=== PATIENT | male | born 1940 | race Caucasian/White ===

== ENCOUNTER 2017-06-17 22:29 | Inpatient (IN) | payer OTHER ==
[~2017-06-17] VITALS: Ht 180.3 cm; Wt 104.6 kg
--- NOTE | 2017-06-17 22:45 | ED GENERAL ADULT ---
See Addendum History of Present Illness General Chief Complaint: Neuro Symptoms/ Deficit Stated Complaint: DISORIENTED,DIFF WALKING,LOSS OF BALANCE Source: patient, family Exam Limitations: no limitations Vital Signs & Intake/Output Vital Signs & Intake/Output Vital Signs Date Time Temp Pulse Resp B/P B/P Pulse O2 O2 Flow FiO2 Mean Ox Delivery Rate 06/17 2336 54 16 114/60 97 Room Air 06/17 2239 98.6 55 18 168/69 96 ED Intake and Output 06/18 0000 06/17 1200 Intake Total Output Total Balance Patient 220 lb Weight Weight Estimated Measurement Method Allergies Coded Allergies: Penicillins (Mild, UNKNOWN 06/17/17) Triage Note: RECEIVED 76 YO MALE C/O MILDLY SLURRED SPEECH, STARTED ABOUT 5 TO 6 PM TODAY WITH DIFFICULTY WALKING, OFF BALANCE, UNSTEADY ON FEET. PARTNER REPORTS SOME DISORINTATION. PT A+O X 4. PT REPORTS SOME L LEG WEAKNESS Triage Nurses Notes Reviewed? yes Onset: Abrupt Duration: hour(s): Timing: recent history HPI: 06/17/17 10:50 PM 76-year-old man presents to the emergency department for a sudden onset of weakness and dragging his left foot. The patient [place] 5 [place] and developed the above symptoms. He denies chest pain or shortness of breath. On physical exam he does have a slight left- sided facial droop and weakness to left hip flexion. He was immediately transported to CT scan for imaging. (Adrian Montero DO) Past History Travel History Traveled to [place] past 21 day No Medical History Any Pertinent Medical History? see below for history Neurological: NONE EENT: NONE Cardiovascular: hypertension, hyperlipidemia Respiratory: NONE Gastrointestinal: NONE Hepatic: NONE Renal: NONE Musculoskeletal: NONE Psychiatric: NONE Endocrine: NONE Blood Disorders: NONE Cancer(s): NONE Surgical History Surgical History: non-contributory Psychosocial History What is your primary language Frisian Tobacco Use: Quit >30 days ago Family History Hx Contributory? No (Adrian Montero DO) Review of Systems Review of Systems Constitutional: Denies: fever. EENTM: Denies: visual changes. Respiratory: Denies: short of breath. Cardiovascular: Denies: chest pain. GI: Denies: abdominal pain. Genitourinary: Reports: no symptoms. Musculoskeletal: Reports: no symptoms. Skin: Reports: no symptoms. Neurological/Psychological: Reports: weakness. Hematologic/Endocrine: Denies: bruising, bleeding. Immunologic/Allergic: Reports: no symptoms. (Adrian Montero DO) Physical Exam Physical Exam General Appearance: well developed/nourished, alert, awake, anxious, moderate distress Head: atraumatic, normal appearance Eyes: Bilateral: normal appearance, PERRL, EOMI. Ears, Nose, Throat: normal pharynx, normal ENT inspection Neck: normal inspection, supple Respiratory: normal breath sounds, chest non-tender, no respiratory distress Cardiovascular: regular rate/rhythm Peripheral Pulses: 4+ radial (R), 4+ radial (L) Gastrointestinal: soft, non-tender Back: normal range of motion Extremities: no edema Neurologic/Psych: awake, alert, oriented x 3 Skin: intact, normal color, warm/dry Core Measures ACS in differential dx? No No ASA d/t GIVEN CVA/TIA Diagnosis: Yes NIH Stroke Scale (24 Hours) NIH Stroke Scale (24 Hours) Response Value Level of Consciousness alert 0 LOC Questions answers both correctly 0 LOC Commands obeys both correctly 0 Best Gaze normal 0 Visual Dawn no visual loss 0 Facial Paresis normal 0 Motor Arm - Left drift 1 Motor Arm - Right no drift 0 Motor Leg - Left drift 1 Motor Leg - Right no drift 0 Limb Ataxia no ataxia 0 Sensory normal 0 Best Language no aphasia 0 Dysarthria normal articulation 0 Extinction and Inattention no neglect 0 Total 2 Date Last Known Well: 06/17/17 Time Last Known Well: 1700 Symptom start date: 06/17/17 Symptom start time: 1700 Reason tPA not ordered Medical Contraindication Sepsis Present: No Sepsis Focused Exam Completed? No (Adrian Montero DO) Core Measures Swallow Evaluation Pass Swallow eval date 06/18/17 Swallow eval time 0126 (Adwoa TRAN,Thai Gallegos) Progress Differential Diagnoses I considered the following diagnoses in my evaluation of the patient: [CVA, TIA, subarachnoid hemorrhage, intracranial bleed, acute coronary syndrome] Plan of Care: Orders Procedure Date/time Status EKG 06/17 2312 Active Saline Lock 06/17 2250 Active TROPONIN LEVEL 06/17 2250 Complete PROTHROMBIN TIME 06/17 2250 Complete COMPREHENSIVE METABOLIC PANEL 06/17 2250 Complete CBC WITHOUT DIFFERENTIAL 06/17 2250 Complete Laboratory Tests 06/17/17 2305: Anion Gap 10, Estimated GFR > 60, BUN/Creatinine Ratio 16.4, Glucose 103 H, Calcium 9.0, Total Bilirubin 1.3, AST 21, ALT 33, Alkaline Phosphatase 64, Troponin I 0.02, Total Protein 6.4, Albumin 3.8, Globulin 2.6, Albumin/Globulin Ratio 1.5, PT 13.4 H, INR 1.23 H, CBC w Diff NO MAN DIFF REQ, RBC 5.01, MCV 88.5, MCH 30.4, MCHC 34.4, RDW 13.2, MPV 7.5, Gran % 62.5, Lymphocytes % 25.9, Monocytes % 7.0, Eosinophils % 4.2, Basophils % 0.4, Absolute Granulocytes 5.0, Absolute Lymphocytes 2.1, Absolute Monocytes 0.6, Absolute Eosinophils 0.3, Absolute Basophils 0 Initial ED EKG: SINUS BRADYCARDIA, JUMBO LATERAL T-WAVE INVERSIONS (Adrian Montero DO) Diagnostic Imaging: Viewed by Me: CT Scan. Discussed w/RAD: CT Scan. Radiology Impression: PATIENT: NATHAN NORTH PRESENT AGE: 76 PATIENT ACCOUNT NO: [id number] : 42 LOCATION: [facility] ORDERING PHYSICIAN: Adrian Montero DO SERVICE DATE: 06/17/17 EXAM TYPE: CAT - CT HEAD ANGIOGRAM EXAMINATION: CT ANGIOGRAM HEAD CLINICAL INFORMATION: Left leg weakness. Facial droop. COMPARISON: Head CT 06/17/2017. TECHNIQUE: Test bolus sequences followed by intravenous administration 95 mL of Optiray 320 intravenous contrast. Helical imaging was performed in the axial plane of the head. Delayed postcontrast imaging of the head was also performed. The data was processed at the rad technologist's workstation for generation of MIP sequences. Three-dimensional volume rendered reformatted images were also generated at an offline 3-D workstation. DLP: 1476 mGy-cm FINDINGS: HEAD: No intracranial mass, intercerebral edema, hemorrhage, or midline shift is evident. No abnormal parenchymal or leptomeningeal enhancement. The ventricles and sulci are stable in size and configuration. No extra-axial collections are appreciated. The paranasal sinuses are well aerated and clear. CRANIAL CTA: There is normal opacification of the major intracranial vessels. No acute proximal large vessel occlusion, focal flow-limiting stenosis, or saccular intracranial aneurysm is identified. No abnormal parenchymal enhancement or regional oligemia is visualized. Dominant left vertebral artery noted. IMPRESSION: No large vessel vascular occlusion. No abnormal parenchymal enhancement. DICTATED BY: Jeronimo Deras MD DATE/TIME DICTATED:06/18/17103 TABLET MAKING MACHINE OPERATOR HELPER: CARY DATE/TIME TRANSCRIBED:06/18/17103 CONFIDENTIAL, DO NOT COPY WITHOUT APPROPRIATE AUTHORIZATION. <Electronically signed in Other Vendor System> SIGNED BY: Jeronimo Deras MD 06/18/17 0112 (Adwoa TRAN,Thai Gallegos) Departure Departure Disposition: STILL A PATIENT Condition: Stable Clinical Impression Primary Impression: CVA (cerebral vascular accident) Departure Forms: Customer Survey General Discharge Information Comments 06/17/17 11:50 PM The patient remains hemodynamically stable,head CT is negative. I spoke to the [place] neurologist Dr. Castillo. I also spoke with Dr. Montalvo. The patient is not a TPA candidate as the onset of the symptoms occurred 5-6 hours prior to arrival. CTA is being done to rule out large vessel occlusion. Dr. Orona will follow the results. PATIENT: NATHAN NORTH PRESENT AGE: 76 PATIENT ACCOUNT NO: [id number] : 42 LOCATION: [facility] ORDERING PHYSICIAN: Adrian Montero DO SERVICE DATE: 06/17/17 EXAM TYPE: CAT - CT HEAD WO IV CONTRAST EXAMINATION: CT HEAD WITHOUT CONTRAST CLINICAL INFORMATION: Altered mental status. COMPARISON: None TECHNIQUE: Contiguous axial imaging was performed from the skull base to vertex without intravenous administration of contrast. DLP: 627.9 mGy-cm FINDINGS: There is no evidence of acute intracranial hemorrhage or territorial infarction. No abnormal mass effect or midline shift is seen. Fair to white matter differentiation is well preserved. No extra-axial fluid collections are identified. There is atrophy with prominence of the ventricles and the sulci and hypodensity of the periventricular white matter due to chronic small vessel ischemic disease. There is vascular calcifications of the internal carotid arteries bilaterally. The osseous structures and soft tissues are normal. The mastoid air cells and visualized portions of the paranasal sinuses are well aerated. IMPRESSION: No acute intracranial pathology. DICTATED BY: Mario Mcknight MD DATE/TIME DICTATED:06/17/172304 TABLET MAKING MACHINE OPERATOR HELPER:CARY DATE/TIME TRANSCRIBED:06/17/172304 CONFIDENTIAL, DO NOT COPY WITHOUT APPROPRIATE AUTHORIZATION. <Electronically signed in Other Vendor System> SIGNED BY: Mraio Mcknight MD 06/17/172308 (Adrian Montero DO) Admission Note Spoke With: Mehnaz Mcknight MD Documentation of Exam: Documentation of any treatments & extenuating circumstances including Concerns Regarding Discharge (functional status, medication knowledge or non-compliance, living conditions, etc.) that warrant an admission rather than observation: [ ADMIT TO TELE,NEUROLOGY CONSULT, ASA, PT/OT] (Adwoa TRAN,Thai Gallegos) Critical Care Note Critical Care Note Critical Care Time: 30-74 min (Adrian Montero DO)
--- NOTE | 2017-06-17 23:09 | CT SCAN REPORT ---
EXAMINATION: CT HEAD WITHOUT CONTRAST CLINICAL INFORMATION: Altered mental status. COMPARISON: None TECHNIQUE: Contiguous axial imaging was performed from the skull base to vertex without intravenous administration of contrast. DLP: 627.9 mGy-cm FINDINGS: There is no evidence of acute intracranial hemorrhage or territorial infarction. No abnormal mass effect or midline shift is seen. Fair to white matter differentiation is well preserved. No extra-axial fluid collections are identified. There is atrophy with prominence of the ventricles and the sulci and hypodensity of the periventricular white matter due to chronic small vessel ischemic disease. There is vascular calcifications of the internal carotid arteries bilaterally. The osseous structures and soft tissues are normal. The mastoid air cells and visualized portions of the paranasal sinuses are well aerated. IMPRESSION: No acute intracranial pathology.
[2017-06-17 23:27] LABS: ABSOLUTE BASOPHIL COUNT 0 /CUMM (0.0-0.2); ABSOLUTE EOSINOPHIL COUNT 0.3 /CUMM (0.0-0.7); ABSOLUTE LYMPH COUNT 2.1 /CUMM (1.2-3.4); ABSOLUTE MONOCYTE COUNT 0.6 /CUMM (0.10-0.60); BASOPHIL % 0.4 % (0.0-2.0); EOSINOPHIL % 4.2 % (0-5); GRANULOCYTE % 62.5 % (42.2-75.2); HEMATOCRIT 44.4 % (42-52); MEAN CORPUSCULAR HGB 30.4 PG (27.0-31.0); MEAN CORPUSCULAR HGB CONC 34.4 G/DL (33.0-37.0); MEAN CORPUSCULAR VOLUME 88.5 FL (80.0-94.0); MEAN PLATELET VOLUME 7.5 FL (7.4-10.4); PLATELET COUNT 254 /CUMM (130-400); RBC DISTRIBUTION WIDTH 13.2 % (11.5-14.5); RED BLOOD CELL CT 5.01 /CUMM (4.70-6.10); WHITE BLOOD CELL COUNT 8.1 /CUMM (4.8-10.8)
[2017-06-17 23:34] LABS: PT 13.4 SEC (9.4-12.5)
--- NOTE | 2017-06-17 23:54 | RADIOLOGY REPORT ---
EXAMINATION: XR PORTABLE CHEST CLINICAL INFORMATION: Altered mental status COMPARISON: None TECHNIQUE: Portable frontal view of the chest was obtained. FINDINGS: Cardiac leads overlie the chest. The lungs are well expanded. There is no focal consolidation, edema, or effusion. No pneumothorax. The cardiomediastinal silhouette is within normal limits. No acute osseous abnormality. IMPRESSION: No acute pulmonary findings.
--- NOTE | 2017-06-18 01:12 | CT SCAN REPORT ---
EXAMINATION: CT ANGIOGRAM HEAD CLINICAL INFORMATION: Left leg weakness. Facial droop. COMPARISON: Head CT 06/17/2017. TECHNIQUE: Test bolus sequences followed by intravenous administration 95 mL of Optiray 320 intravenous contrast. Helical imaging was performed in the axial plane of the head. Delayed postcontrast imaging of the head was also performed. The data was processed at the certified nuclear medicine technologist's workstation for generation of MIP sequences. Three-dimensional volume rendered reformatted images were also generated at an offline 3-D workstation. DLP: 1476 mGy-cm FINDINGS: HEAD: No intracranial mass, intercerebral edema, hemorrhage, or midline shift is evident. No abnormal parenchymal or leptomeningeal enhancement. The ventricles and sulci are stable in size and configuration. No extra-axial collections are appreciated. The paranasal sinuses are well aerated and clear. CRANIAL CTA: There is normal opacification of the major intracranial vessels. No acute proximal large vessel occlusion, focal flow-limiting stenosis, or saccular intracranial aneurysm is identified. No abnormal parenchymal enhancement or regional oligemia is visualized. Dominant left vertebral artery noted. IMPRESSION: No large vessel vascular occlusion. No abnormal parenchymal enhancement.
--- NOTE | 2017-06-18 02:48 | History & Physical ---
Peter Lai MD 06/18/17 0247: General Information and HPI MD Statement: I have seen and personally examined NATHAN NORTH and documented this H&P. The patient is a 76 year old M who presented with a patient stated chief complaint of left sided weakness and facial droop. Source of Information: patient Exam Limitations: no limitations History of Present Illness: 76 year old right handed male former smoker with past medical history significant for hypertension and hyperlipidema presented to the emergency department with acute onset left hemiplegia and dysarthria. The patient was in his usual state of health, playing golf around 5PM, when he noticed he felt off balance, weak, wasn't hitting the ball well. He thought he was dehydrated because he sometimes has orthostatic symptoms and feels lightheaded from his diuretics and blood pressure medications. He was driven back to [employer] and tried to drink some water. He realized then that his symptoms weren't improving , had significant left sided weakness, and developed dysarthria over the next couple hours. He was picked up and taken home by his significant other. After no improvement in his symptoms over the course of five hours he came to the emergency department. Review of systems is negative for any chest pain, palpitations, fevers, chills, confusion, seizure activity, cough, or dysuria. He reportedly has seen a sales representative publications in [place] in the past and had a negative stress test about 7 years ago. He does report having a cardiac catheterization about 50 years ago for an uncertain procedure but no other cardiac history. He takes medications for high blood pressure and cholesterol ( norvasc, chlorthalidone, and crestor. cant recall the other two medications). He quit smoker 20 years ago but has the occasional cigar and drinks approximately 10 alcoholic drinks per week. In the emergency department, he was outside the TPA window and underwent NCHCT and CTA of the head. He was given aspirin 325mg and admitted to telemetry for further management. Allergies/Medications Allergies: Coded Allergies: Penicillins (Mild, UNKNOWN 06/17/17) Compliance With Home Meds: GOOD Past History Travel History Traveled to [place] past 21 day No Medical History Neurological: NONE EENT: NONE Cardiovascular: hypertension, hyperlipidemia Respiratory: NONE Gastrointestinal: NONE Hepatic: NONE Renal: NONE Musculoskeletal: NONE Psychiatric: NONE Endocrine: NONE Blood Disorders: NONE Cancer(s): NONE Surgical History Surgical History: non-contributory Past Family/Social History Family History Relations & Conditions if any MOTHER Chronic kidney disease FATHER FH: diabetes mellitus FH: pancreatic cancer Psychosocial History Smoking Status: Former Smoker ETOH Use: occasional use Illicit Drug Use: denies illicit drug use Functional Ability ADLs Independent: dressing, eating, toileting, bathing. Ambulation: independent IADLs Independent: shopping, housework, finances, food prep, telephone, transportation , medication admin. Review of Systems Review of Systems Constitutional: Reports: malaise. Denies: chills, diaphoresis, fever. EENTM: Reports: no symptoms. Cardiovascular: Denies: chest pain, palpitations, syncope. Respiratory: Denies: orthopnea, short of breath. GI: Reports: no symptoms. Genitourinary: Reports: no symptoms. Musculoskeletal: Reports: no symptoms. Skin: Reports: no symptoms. Neurological/Psychological: Reports: ataxia, weakness. Hematologic/Endocrine: Reports: no symptoms. Immunologic/Allergic: Reports: no symptoms. All Other Systems: Reviewed and Negative Exam & Diagnostic Data Last 24 Hrs of Vital Signs/I&O Vital Signs Date Time Temp Pulse Resp B/P B/P Pulse O2 O2 Flow FiO2 Mean Ox Delivery Rate 06/18 0410 98.4 55 16 147/74 94 Room Air 06/17 2336 54 16 114/60 97 Room Air 06/17 2332 96 Room Air 06/17 2239 98.6 55 18 168/69 96 Intake & Output 06/18 0800 06/18 0000 06/17 1600 Intake Total Output Total Balance Patient 99.79 kg Weight Weight Estimated Measurement Method Physical Exam General Appearance Alert, Oriented X3, Cooperative, No Acute Distress, dysarthric HEENT Atraumatic, PERRLA, EOMI, Mucous Membr. moist/pink Neck Supple, No JVD Cardiovascular Regular Rate, Normal S1, Normal S2, No Murmurs Lungs Clear to Auscultation, Normal Air Movement Abdomen Normal Bowel Sounds, Soft, No Tenderness, No Masses Neurological Normal Tone, Sensation Intact, Reflexes 2+, left facial droop and LUE/LLE 4/5 strength, ataxic narrow based gait, negative romberg, mild dysarthria and facial assymetry Extremities No Clubbing, No Cyanosis, Normal Pulses, minimal bilateral LE edema Last 24 Hrs of Labs/Ignacio: Laboratory Tests 06/18/17 0550: Sodium Pending, Potassium Pending, Chloride Pending, Carbon Dioxide Pending, Anion Gap Pending, BUN Pending, Creatinine Pending, BUN/Creatinine Ratio Pending , Triglycerides Pending, Cholesterol Pending, LDL Cholesterol, Calc Pending, HDL Cholesterol Pending, Cholesterol/HDL Ratio Pending, TSH Pending, Free T4 Pending , CBC w Diff Pending, WBC Pending, RBC Pending, Hgb Pending, Hct Pending, MCV Pending, MCH Pending, MCHC Pending, RDW Pending, Plt Count Pending, MPV Pending 06/17/17 2305: Anion Gap 10, Estimated GFR > 60, BUN/Creatinine Ratio 16.4, Glucose 103 H, Calcium 9.0, Total Bilirubin 1.3, AST 21, ALT 33, Alkaline Phosphatase 64, Troponin I 0.02, Total Protein 6.4, Albumin 3.8, Globulin 2.6, Albumin/Globulin Ratio 1.5, PT 13.4 H, INR 1.23 H, CBC w Diff NO MAN DIFF REQ, RBC 5.01, MCV 88.5, MCH 30.4, MCHC 34.4, RDW 13.2, MPV 7.5, Gran % 62.5, Lymphocytes % 25.9, Monocytes % 7.0, Eosinophils % 4.2, Basophils % 0.4, Absolute Granulocytes 5.0, Absolute Lymphocytes 2.1, Absolute Monocytes 0.6, Absolute Eosinophils 0.3, Absolute Basophils 0 Diagnostic Data EKG Results diffuse T wave inversions Assessment/Plan Assessment: 76 year old right handed male former smoker with past medical history significant for hypertension and hyperlipidema presented to the emergency department with acute onset left hemiplegia and dysarthria. CVA: NIH stroke scale of 4, outside TPA window on presentation NCHCT negative for intracranial hemorrhage or territorial infarction Negative CTA of the head Given 325mg of aspirin in the emergency department Monitor for arrhythmia on telemetry for possible embolic CVA Neurology consultation Continue aspirin and high intensity statin-on crestor at home Check lipid panel Will need carotid doppler, transthoracic echocardiogram and MRI Brain to complete workup PT/OT consultations and formal swallow evaluation ordered HTN: Hold antihypertensives for permissive hypertension first 48 hours Medications need to be confirmed in the morning, patient couldn't recall all his meds/doses and no pharmacy claim history available Heart healthy diet DVT ppx-lovenox 40mg subcutaneous daily Full code As Ranked By This Provider Problem List: 1. CVA (cerebral vascular accident) Core Measures/Misc (11/21) Acute Coronary Syndrome ACS Diagnosis: No Congestive Heart Failure Congestive Heart Failure Diagnosis No Cerebrovascular Accident CVA/TIA Diagnosis: Yes NIH Stroke Scale: Total 4 Date Last Known Well: 06/17/17 Time Last Known Well: 1700 Symptom Start Date: 06/17/17 Symptom Start Time: 1700 Reason tPA not ordered Medical Contraindication Swallow Evaluation Pass Current/Past Hx AFib/AFlutter No VTE (View Protocol) VTE Risk Factors Age>40 No Mechanical VTE Prophylaxis d/t N/A MechProphylax Ordered No VTE Pharm Prophylaxis d/t NA PharmProphylax ordered Sepsis (View protocol) Sepsis Present: No MaurilioJason crews 06/18/17 0523: General Information and HPI Allergies/Medications Home Med list Amlodipine Besylate 5 MG TABLET 5 MG PO DAILY HEART (Reported) Atorvastatin Calcium 10 MG TABLET 10 MG PO DAILY HEART (Reported) Benazepril HCl 40 MG TABLET 40 MG PO BID HEART (Reported) Carvedilol 25 MG TABLET 25 MG PO BID HEART (Reported) Chlorthalidone 25 MG TABLET 25 MG PO DAILY HEART (Reported) Resident Review Statement Resident Statement: examined this patient, discussed with international coordinator, agreed with international coordinator, reviewed images Other Findings: 76-year-old gentleman past medical history significant for hypertension, hyperlipidemia, status post cardiac cath about 50 years ago, presenting with left upper and lower extremity weakness. Apparently he was golfing during the day yesterday when he started to experience all limbs with his gait and states this was around 5 PM. The weakness was later associated with some mild difficulty speaking. He asked his significant other to come pick me him up and bring him to the hospital. Time on arrival to the ED was around 10 PM. On interview states that he is continuing to have left upper and lower extremity weakness, however his speech has improved a little. Denies chest pain, palpitations, fever, tingling, numbness, syncope. Vitals temperature 98.6, respiratory rate 16, heart rate 55, blood pressure 168/ 69> 114/60, saturating 97% on room air. On examination patient is alert and oriented, some mild slurring of speech noted. Pupils equal round and reactive, no nystagmus noted, visual evans intact. Mild left facial droop noted. Left upper and lower extremity weakness 3/5. Reflexes +2, no Babinski noted. Passed bedside swallow eval Labs CBC/bep unremarkable, glucose 103, INR 1.23, troponin 0.02 EKG normal sinus rhythm with diffuse T-wave inversions seen in all leads Imaging: CT head :No acute intracranial pathology. Chest x-ray: No acute pulmonary findings. CTA:No large vessel vascular occlusion. No abnormal parenchymal enhancement. Problem list: Ischemic CVA Hypertension hyperlipidemia Plan: Admit to telemetry floor, continue his cardiac monitoring every 2 neurochecks, vitals per protocol Follow-up echocardiogram, lipid panel, TSH Hold antihypertensives for now to allow for permissive hypertension Please confirm his medication list in the morning Continue aspirin and increase his Crestor to 40 mg PT /OT to evaluate and treat Formal swallow eval heart healthy diet Patient would like to hold off on further imaging such as MRI and carotid ultrasound pending records from his PCP to see what he has already had done. DVT prophylaxis with subcutaneous Lovenox Full code Mehnaz Mcknight 06/18/17 0536: Attending MD Review Statement Attending Statement Attending MD Statement: examined this patient, discuss w/resident/PA/VEHICLE UPHOLSTERER, agreed w/resident/PA/VEHICLE UPHOLSTERER, reviewed EMR data (avail), reviewed images, amended to note Attending Assessment/Plan: CC: Left sided weakness PMH: HTN Patient was playing golf today at 5 PM when he noticed that his gait was unsteady. He could not keep playing golf anymore, he thought he must be dehydrated so he called his friend to drive him to her home. He stayed there for some time, tried to hydrate himself but gait instability persisted and he started to notice left-sided weakness with slurred speech. He realized the symptoms are not going away so he came to ER. By this time 5 hours work past. Left-sided weakness persisted. Patient stated that he had one episode of dizziness approximately a month back when he was in [place], it was secondary to dehydration. He has stress test approximately 4-5 year pack which was unremarkable. He had history of some cardiac murmur approximately 50 years back for which he underwent cardiac catheterization. He is compliant with his medications, no history of previous strokes, smoked 20 years back. Other than the left-sided weakness did not notice any tingling numbness, double vision, blurry vision. He noticed left facial droop, no seizure-like activity, no actual falls or passing out. Currently denies any chest pain chest tightness nausea, vomiting, otherwise ROS unremarkable. Vitals: Afebrile, pulse 55, respiration 18, blood pressure 168/69, saturating 96 % on room air On exam: A O 3, cooperative, no acute distress, neck supple, JVD normal, no lymphadenopathy, mucosa moist, no dependent edema, no obvious skin rashes or inflammation CVS: S1-S2, RRR. RS: Clear to auscultate bilaterally. Abdomen: Soft , NT, ND, bowel sounds present. PERRLA, EOMI, no nystagmus, vision intact, peripheral vision intact, loss of left nasolabial fold, decreased strength of facial muscles on left side including wrinkling on left forehead. Dysarthria, Left upper extremity strength 4+/5, left lower extremity strength 4+/5, gait unsteady, cerebellar signs negative but sluggish on the left side. No sensory deficit CT head: No acute intracranial pathology. CXR:No acute pulmonary findings. CTA head: No large vessel vascular occlusion. No abnormal parenchymal enhancement. Assessment and plan 76-year-old male with past medical history significant for hypertension only presented in ER for left-sided weakness on the face, upper extremity and lower extremity started at 5 PM. He has dysarthria, decreased strength in left side as mentioned above with NIHSS score 5, patient was out of window for TPA, CT head was obtained no obvious vascular lesion identified. Patient may be having a lacunar stroke which could not be seen on CT. Patient refuses to get MRI at this point until neurology consult and talking with his primary care physician. Patient also states that we need to get records from his primary care physician about 2-D echocardiogram, carotid Doppler before getting any investigations. + Ischemic Stroke with left-sided weakness + History of hypertension - Admit to telemetry - Continuous telemetry monitoring - Serial troponin and EKG - Serial neuro checks - MRI brain after discussing with neurologist and patient's primary care physician - 2-D echocardiogram and Carotid Dopplers, often obtaining records from patient' s PCP and neurology opinion - DVT prophylaxis - Obtain lipid profile - Continue aspirin and statin - Permissive hypertension - Neurologic consult - OT PT evaluation - Swallow evaluation - DVT prophylaxis
--- NOTE | 2017-06-18 05:38 | Admission Certification ---
Admission Certification Certification Statement - As attending physician, I certify that at the time of - admission, based on clinical presentation, severity of - symptoms, need for further diagnostic testing and - therapeutic interventions, and risk of adverse outcomes - without in-hospital treatment, in my clinical assessment, - this patient requires an acute hospital stay for a minimum - of two nights or longer. I have also considered psychsocial - factors such as support system, advanced age, financial - issues, cognitive issues, and failed out-patient treatments, - past re-admission history, safety of patient, and lack of - compliance as applicable. Specific rationale supporting this admission is: Suspected Ischemic stroke
[2017-06-18 06:08] LABS: ABSOLUTE BASOPHIL COUNT 0 /CUMM (0.0-0.2); ABSOLUTE EOSINOPHIL COUNT 0.1 /CUMM (0.0-0.7); ABSOLUTE GRANULOCYTE CT 6.4 /CUMM (1.4-6.5); ABSOLUTE LYMPH COUNT 1.3 /CUMM (1.2-3.4); ABSOLUTE MONOCYTE COUNT 0.4 /CUMM (0.10-0.60); BASOPHIL % 0.3 % (0.0-2.0); EOSINOPHIL % 1.1 % (0-5); GRANULOCYTE % 77.5 % (42.2-75.2); HEMATOCRIT 44.3 % (42-52); MEAN CORPUSCULAR HGB CONC 33.8 G/DL (33.0-37.0); MEAN CORPUSCULAR VOLUME 88.6 FL (80.0-94.0); MEAN PLATELET VOLUME 7.4 FL (7.4-10.4); PLATELET COUNT 242 /CUMM (130-400); RBC DISTRIBUTION WIDTH 13.3 % (11.5-14.5); RED BLOOD CELL CT 4.99 /CUMM (4.70-6.10); WHITE BLOOD CELL COUNT 8.3 /CUMM (4.8-10.8)
[2017-06-18] MEDS ORDERED: CARVEDILOL25 M1 PO (09:28)
[2017-06-18] MEDS ORDERED: CHLORTHALIDONE25 M1 PO (09:29)
[2017-06-18] MEDS ORDERED: BENAZEPRIL HCL40 MG PO (09:30)
[2017-06-18] MEDS ORDERED: AMLODIPINE BESYL5 M1 PO (09:31)
[2017-06-18] MEDS ORDERED: ATORVASTATIN CA10 M1 PO (09:32)
--- NOTE | 2017-06-18 10:25 | Event Note ---
Event Note Event Note: I called Dr. Grajeda's to his office to place a consult. The operated told me that Dr. River is covering him and she gave me his number. I tried call to Dr. River's office but couldn't get in touch. When I called again to Dr. Grajeda's office and left patient information with them so that they can call Dr. River or Dr. Grajeda for consult.
--- NOTE | 2017-06-18 13:19 | Cons- Neurology ---
General Information and HPI Consulting Request Date of Consult: 06/18/17 Requested By: Mehnaz Mcknight MD Reason for Consult: Stroke History of Present Illness: The patient is a 76 y/o RH male presents with left arm and leg and facial weakness which started yesterday around 5pm. He slighlty better now except mild LUE weakness Allergies/Medications Allergies: Coded Allergies: Penicillins (Mild, UNKNOWN 06/17/17) Home Med List: Amlodipine Besylate 5 MG TABLET 5 MG PO DAILY HEART (Reported) Atorvastatin Calcium 10 MG TABLET 10 MG PO DAILY HEART (Reported) Benazepril HCl 40 MG TABLET 40 MG PO BID HEART (Reported) Carvedilol 25 MG TABLET 25 MG PO BID HEART (Reported) Chlorthalidone 25 MG TABLET 25 MG PO DAILY HEART (Reported) Current Medications: Current Medications Sig/Barrett Start time Last Medication Dose Route Stop Time Status Admin Aspirin 81 MG DAILY 06/18 0900 AC 06/18 PO 0924 Aspirin 325 MG ONCE ONE 06/17 2345 DC 06/17 PO 06/17 2346 2358 Atorvastatin Calcium 80 MG 1700 06/18 1700 AC PO Enoxaparin Sodium 40 MG DAILY 06/18 0900 AC 06/18 SC 0924 Review of Systems Review of Systems: 10 point ROS was unremarkable Past History Travel History Traveled to [place] past 21 day No Medical History Neurological: NONE EENT: NONE Cardiovascular: hypertension, hyperlipidemia Respiratory: NONE Gastrointestinal: NONE Hepatic: NONE Renal: NONE Musculoskeletal: NONE Psychiatric: NONE Endocrine: NONE Blood Disorders: NONE Cancer(s): NONE Surgical History Surgical History: non-contributory Family History Relations & Conditions If Any: MOTHER Chronic kidney disease FATHER FH: diabetes mellitus FH: pancreatic cancer Psychosocial History Smoking Status: Former Smoker ETOH Use: occasional use Illicit Drug Use: denies illicit drug use Functional Ability ADLs Independent: dressing, eating, toileting, bathing. Ambulation: independent IADLs Independent: shopping, housework, finances, food prep, telephone, transportation , medication admin. Exam & Diagnostic Data Vital Signs and I&O Vital Signs Date Time Temp Pulse Resp B/P B/P Pulse O2 O2 Flow FiO2 Mean Ox Delivery Rate 06/18 0945 98.3 53 20 178/80 97 Room Air 06/18 0612 98.1 56 18 138/67 97 Room Air 06/18 0410 98.4 55 16 147/74 94 Room Air 06/17 2336 54 16 114/60 97 Room Air 06/17 2332 96 Room Air 06/17 2239 98.6 55 18 168/69 96 Intake & Output 06/18 1600 06/18 0800 06/18 0000 Intake Total Output Total 500 600 Balance -500 -600 Output, Urine 500 600 Patient 99.79 kg Weight Weight Estimated Measurement Method Physical Exam: A&O4, sleepy PLANT ATTENDANT 2-12 intact except mild left facial weakness Motor: ? trace drift LUE, 4+/5 LUE and 4/5 LLE Neg tiffany No clonus Downgoing toes Intact sensation t/o Last 48 Hours of Lab Results: Laboratory Tests 06/18 06/17 0550 2305 Chemistry Sodium (137 - 145 mmol/L) 133 L 135 L Potassium (3.5 - 5.1 mmol/L) 3.5 3.8 Chloride (98 - 107 mmol/L) 97 L 96 L Carbon Dioxide (22 - 30 mmol/L) 25 28 Anion Gap (5 - 16) 10 10 BUN (9 - 20 mg/dL) 16 18 Creatinine (0.7 - 1.2 mg/dL) 0.9 1.1 Estimated GFR (>60 ml/min) > 60 > 60 BUN/Creatinine Ratio (7 - 25 %) 17.8 16.4 Glucose (65 - 99 mg/dL) 103 H Calcium (8.4 - 10.2 mg/dL) 9.0 Total Bilirubin (0.2 - 1.3 mg/dL) 1.3 AST (17 - 59 U/L) 21 ALT (21 - 72 U/L) 33 Alkaline Phosphatase (< 127 U/L) 64 Troponin I (<0.11 ng/ml) 0.02 Total Protein (6.3 - 8.2 g/dL) 6.4 Albumin (3.5 - 5.0 g/dL) 3.8 Globulin (1.9 - 4.2 gm/dL) 2.6 Albumin/Globulin Ratio (1.1 - 2.2 %) 1.5 Triglycerides (<150 mg/dL) 70 Cholesterol (< 200 MG/DL) 147 LDL Cholesterol, Calc (65 - 129 mg/dL) 84 HDL Cholesterol (40 - 60 mg/dL) 49 Cholesterol/HDL Ratio (0.00 - 4.88 %) 3 TSH (0.270 - 4.200 uIU/mL) 1.890 Free T4 (0.78 - 2.44 ng/dL) 1.58 Coagulation PT (9.4 - 12.5 SEC) 13.4 H INR (0.90 - 1.17) 1.23 H Hematology CBC w Diff NO MAN DIFF REQ NO MAN DIFF REQ WBC (4.8 - 10.8 /CUMM) 8.3 8.1 RBC (4.70 - 6.10 /CUMM) 4.99 5.01 Hgb (14.0 - 18.0 G/DL) 15.0 15.3 Hct (42 - 52 %) 44.3 44.4 MCV (80.0 - 94.0 FL) 88.6 88.5 MCH (27.0 - 31.0 PG) 30.0 30.4 MCHC (33.0 - 37.0 G/DL) 33.8 34.4 RDW (11.5 - 14.5 %) 13.3 13.2 Plt Count (130 - 400 /CUMM) 242 254 MPV (7.4 - 10.4 FL) 7.4 7.5 Gran % (42.2 - 75.2 %) 77.5 H 62.5 Lymphocytes % (20.5 - 51.1 %) 15.7 L 25.9 Monocytes % (1.7 - 9.3 %) 5.4 7.0 Eosinophils % (0 - 5 %) 1.1 4.2 Basophils % (0.0 - 2.0 %) 0.3 0.4 Absolute Granulocytes (1.4 - 6.5 /CUMM) 6.4 5.0 Absolute Lymphocytes (1.2 - 3.4 /CUMM) 1.3 2.1 Absolute Monocytes (0.10 - 0.60 /CUMM) 0.4 0.6 Absolute Eosinophils (0.0 - 0.7 /CUMM) 0.1 0.3 Absolute Basophils (0.0 - 0.2 /CUMM) 0 0 Imaging/Other Studies: Neg CT head and CTA for acute changes or stenosis Assessment/Plan Assessment: The patient is a 76 y/o RH male presents with left arm and leg and facial weakness which started yesterday around 5pm. He slighlty better now except mild LUE weakness Likely CVA Obtain MRI of brain w/o AKIRA Continue statin and aspirin obtain fasting lipids, b12, tsh, hba1c\ Obtian pt/ot/speech/swallow study Obtain Echow ith bubble Telemetry F/u with Dr. Montalvo in 1-6 weeks Recommendations: see above Consult Acknowledgment - Thank you for your consult request.
[2017-06-18 16:13] VITALS: BP 174/84
[2017-06-18 17:19] VITALS: BP 164/90
--- NOTE | 2017-06-18 17:55 | PN- Att Addend ---
Attending Addendum Attending Brief Note 76M PMH HTN admitted after complaints of sudden onset of unsteady gait, left leg weakness with apraxia, left hand weakness, left facial droop, and slurred speech. Patient's symptoms persist today. He is slurring his words and has a facial droop. His left handgrip is 4+/5, LLE strength 4+/5, sensation intact, coordination intact, gait deferred, CN normal aside from facial droop. He is able to swallow without difficulty. He was out of tPA window, and no thrombus noted on CTA head. 1. Acute CVA Plan - Continue on telemetry - MRI head - Echocardiogram, carotid doppler - ASA and statin - Lipid panel - Continue home medications - DVT PPx
[2017-06-18 23:00] VITALS: BP 148/88
[2017-06-19 06:00] VITALS: BP 132/80
--- NOTE | 2017-06-19 10:00 | PN- Housestaff ---
Unruly TRAN,[facility] 06/19/17 0947: Subjective Follow-up For: cva Review of Systems Constitutional: Reports: no symptoms. EENTM: Denies: blurred vision. Respiratory: Denies: cough, short of breath. Gastrointestinal: Denies: abdominal pain. Musculoskeletal: Reports: muscle stiffness. Objective Last 24 Hrs of Vital Signs/I&O Vital Signs Date Time Temp Pulse Resp B/P B/P Pulse O2 O2 Flow FiO2 Mean Ox Delivery Rate 06/19 0600 97.7 49 18 132/80 94 06/18 2300 98.1 49 18 148/88 94 06/18 1719 98.0 57 20 164/90 96 06/18 1613 98.0 55 20 174/84 97 Room Air 06/18 1348 98.0 58 20 188/87 98 Room Air Intake & Output 06/19 1600 06/19 0800 06/19 0000 Intake Total 400 400 Output Total 850 975 Balance -450 -575 Intake, Oral 400 400 Output, Urine 850 975 Patient 103.674 kg Weight Weight Reported by Patient Measurement Method Physical Exam General Appearance: Alert, Oriented X3, Cooperative, No Acute Distress Skin: No Significant Lesion HEENT: Atraumatic, PERRLA, EOMI, Mucous Membr. moist/pink Cardiovascular: Regular Rate, Normal S1, Normal S2, No Murmurs Lungs: Normal Air Movement Abdomen: Soft, No Tenderness Neurological: Normal Speech, Strength at 5/5 X4 Ext, Normal Tone, Sensation Intact, Cranial Nerves 3-12 NL Extremities: No Edema Assessment/Plan Assessment: This is a 76 yo male with PMH Htn who comes in for CC L. sided weakness and dysrthria with max NIHSS 5, was out of window for TPA and no obvious lesion noted on CT scan. PLAN: CVA: * MRI * Echo * Carotid US * ASA * Statin * PT/OT/Speech * Will F/U Vit b12, A1C, TSH * Appreciate neuro recs HTN: Bp has been between 188/87 and 132/80 since admission. * Con't chlorthalidone * con't Coreg 25mg BID * Holding Amlodipine. Pending BP can add back to regimen Hypokalemia: Today 3.1 * Repleted Problem List: 1. CVA (cerebral vascular accident) Pain Ratin Pain Location: none Pain Goal: Remain pain free Pain Plan: none Tomorrow's Labs & Rationales: cbc bep\ Soumya TRAN,Randy 06/19/17 1503: Attending MD Review Statement Attending Statement Attending MD Statement: examined this patient, discuss w/resident/PA/JAVA CONSULTANT, agreed w/resident/PA/JAVA CONSULTANT, reviewed EMR data (avail) Attending Assessment/Plan: 76M PMH HTN admitted after complaints of sudden onset of unsteady gait, left leg weakness with apraxia, left hand weakness, left facial droop, and slurred speech. He was out of tPA window, and no thrombus noted on CTA head. Admission exam: He is slurring his words and has a facial droop. His left handgrip is 4+/5, LLE strength 4+/5, sensation intact, coordination intact, gait deferred, CN normal aside from facial droop. He is able to swallow without difficulty. Today's exam: Facial droop improving. Slurred speech improved, but per family still not at baseline. Leg weakness better but still with some difficulty with coordination. No new symptoms. 1. Acute CVA Plan - Continue on telemetry - Cancel MRI, as patient does not want it and it would not address change clerk - Start Amlodipine 2.5mg daily, continue Coreg and Chlorthalidone - Echocardiogram, carotid doppler - ASA and statin - Lipid panel - Continue home medications - DVT PPx - PT/OT - Anticipated discharge tomorrow
[2017-06-19 14:59] VITALS: BP 150/72
--- NOTE | 2017-06-19 15:38 | PN- Neurology ---
Subjective Subjective: Doing better Objective Vital Signs and I&Os Vital Signs Date Time Temp Pulse Resp B/P B/P Pulse O2 O2 Flow FiO2 Mean Ox Delivery Rate 06/19 1459 150/72 06/19 1426 61 16 97 Room Air 06/19 1219 158/78 06/19 0600 97.7 49 18 132/80 94 06/18 2300 98.1 49 18 148/88 94 06/18 1719 98.0 57 20 164/90 96 06/18 1613 98.0 55 20 174/84 97 Room Air Intake & Output 06/19 1600 06/19 0800 06/19 0000 06/18 1600 06/18 0800 06/18 0000 Intake Total 400 400 400 Output Total 750 850 975 500 600 Balance -350 -450 -575 -500 -600 Intake, Oral 400 400 400 Output, Urine 750 850 975 500 600 Patient 103.674 kg 99.79 kg Weight Weight Reported by Patient Estimated Measurement Method Physical Exam: A&O4 FORESTRY BIOLOGY SPECIALIST 2-12 intact except mild left facial weakness Motor: ? trace drift LUE, 5/5 LUE and 4+/5 LLE Neg tiffany Intact sensation Current Medications: Current Medications Sig/Barrett Start time Last Medication Dose Route Stop Time Status Admin Amlodipine Besylate 5 MG DAILY 06/19 0946 DC PO Aspirin 81 MG DAILY 06/18 0900 AC 06/19 PO 0805 Atorvastatin Calcium 80 MG 1700 06/18 1700 AC 06/18 PO 1811 Carvedilol 25 MG BID 06/19 0946 AC 06/19 PO 1219 Chlorthalidone 25 MG DAILY 06/19 0946 AC 06/19 PO 1219 Cyanocobalamin 250 MCG DAILY 06/19 1143 AC 06/19 PO 1310 Enoxaparin Sodium 40 MG DAILY 06/18 0900 AC 06/19 SC 0806 Potassium Chloride 20 MEQ Q2 06/19 1200 DC 06/19 PO 06/19 1401 1310 Potassium Chloride 40 MEQ ONCE ONE 06/19 1015 DC 06/19 PO 06/19 1016 1218 Potassium Chloride 20 MEQ Q2 06/19 1000 DC PO 06/19 1401 Results Last 24 Hours of Lab Results: Laboratory Tests 06/19 06/18 0655 1811 Chemistry Sodium (137 - 145 mmol/L) 135 L Potassium (3.5 - 5.1 mmol/L) 3.1 L Chloride (98 - 107 mmol/L) 98 Carbon Dioxide (22 - 30 mmol/L) 23 Anion Gap (5 - 16) 13 BUN (9 - 20 mg/dL) 14 Creatinine (0.7 - 1.2 mg/dL) 0.9 Estimated GFR (>60 ml/min) > 60 BUN/Creatinine Ratio (7 - 25 %) 15.6 Hemoglobin A1c Pending Recent Imaging Studies: Neg CT head and CTA for acute changes or stenosis Assessment/Plan Assessment: The patient is a 76 y/o RH male presents with left arm and leg and facial weakness which started yesterday around 5pm. He slighlty better now except mild LUE weakness Likely CVA Obtain MRI of brain w/o AKIRA to look for embolic pattern, if found then PAfib needs to be considered and will need cardiac monitoring x 4 weeks Continue statin and aspirin Obtian pt/ot/speech/swallow study Obtain Echow ith bubble Telemetry F/u with Dr. Montalvo in 1-[address] Montalvo will be back on service tomorrow Plan: see above
--- NOTE | 2017-06-19 16:59 | ULTRASOUND REPORT ---
EXAMINATION: BILATERAL DUPLEX CAROTID ULTRASOUND CLINICAL INDICATION: Left leg weakness. Facial droop. Suspected stroke. COMPARISON: CTA of the head done on 06/17/2017. TECHNIQUE: TECHNIQUE: Real-time ultrasound and Doppler techniques (integrating B-mode 2D vascular images, Doppler spectral analysis and color flow Doppler imaging) were utilized to interrogate the extracranial carotid and vertebral arteries bilaterally. The degree of stenosis determined by criteria similar to NASCET. . FINDINGS: On the RIGHT, there are focal atherosclerotic plaques identified within the distal right carotid arterial bulb extending into the origin, proximal part of both internal and external carotid arteries. In the distal CCA, the peak systolic velocity is 55.4 cm/sec. In the proximal ICA, the peak systolic velocity is 60.5 cm/sec, and the end diastolic velocity is 13 cm/sec. The ICA/CCA ratio is 1.09. On the LEFT, there are focal atherosclerotic plaques identified carotid arterial bulb extending into the origin, proximal part of left internal and external carotid arteries.. In the distal CCA, the peak systolic velocity is 75.6 cm/sec. In the proximal ICA, the peak systolic velocity is 73.3 cm/sec, and the end diastolic velocity is 19.9 cm/sec. The ICA/CCA ratio is 0.96. The vertebral arteries show antegrade flow with normal waveforms bilaterally. IMPRESSION: 1. The right internal carotid artery shows no hemodynamically significant stenosis. 2. The left internal carotid artery shows no hemodynamically significant stenosis. 3. The Doppler flow velocities are consistent with less than 50% stenosis bilaterally. 4. Both vertebral arteries are patent and show antegrade flow.
[2017-06-19 23:22] VITALS: BP 142/80
[2017-06-20 06:00] VITALS: BP 138/78
--- NOTE | 2017-06-20 07:39 | Patient Discharge Instructions ---
Discharge Instructions General Discharge Information You were seen/treated for: TIA You had these procedures: Imaging Watch for these problems: repeated weakness slurring of speech excruciating headache fever Special Instructions: 1. Please take your new medication as prescribed. 2. Please follow up with PCP in one week particularly for your echocardiogram results 3. Please follow up with neurologist in one month Diet Recommended Diet: Heart Healthy Activity Full Activity/No Limits: Yes Acute Coronary Syndrome Inclusion Criteria At DC or during hospital stay patient has or had the following: ACS DIAGNOSIS No Discharge Core Measures Meds if any: Prescribed or Continued at Discharge Meds if any: NOT Prescribed or Continued at Discharge Congestive Heart Failure Inclusion Criteria At DC or during hospital stay patient has or had the following: CHF DIAGNOSIS No Discharge Core Measures Meds if any: Prescribed or Continued at Discharge Meds if any: NOT Prescribed or Continued at Discharge Cerebrovascular accident Inclusion Criteria At DC or during hospital stay patient has or had the following: CVA/TIA Diagnosis Yes Discharge Core Measures Meds if any: Prescribed or Continued at Discharge Meds if any: NOT Prescribed or Continued at Discharge Venous thromboembolism Inclusion Criteria VTE Diagnosis No VTE Type NONE VTE Confirmed by (Test) NONE Discharge Core Measures - Per Current guidelines, there needs to be overlap - treatment for the first 5 days of Warfarin therapy. - If discharged on Warfarin prior to 5 days of - overlap therapy, the patient will need to be - assessed for post discharge needs including - *Post discharge parental anticoagulation - *Warfarin and/or parental anticoagulation education - *Follow up date to check INR post discharge At least 5 days overlap therapy as Inpatient No Meds if any: Prescribed or Continued at Discharge Note: Overlap Therapy is Warfarin and Anticoagulant Meds if any: NOT Prescribed or Continued at Discharge
[2017-06-20 07:59] LABS: ABSOLUTE BASOPHIL COUNT 0 /CUMM (0.0-0.2); ABSOLUTE EOSINOPHIL COUNT 0.1 /CUMM (0.0-0.7); ABSOLUTE GRANULOCYTE CT 4.4 /CUMM (1.4-6.5); ABSOLUTE LYMPH COUNT 1.5 /CUMM (1.2-3.4); ABSOLUTE MONOCYTE COUNT 1.5 /CUMM (0.10-0.60); BASOPHIL % 0.2 % (0.0-2.0); EOSINOPHIL % 1.5 % (0-5); GRANULOCYTE % 59.2 % (42.2-75.2); HEMATOCRIT 45.1 % (42-52); MEAN CORPUSCULAR HGB 30.2 PG (27.0-31.0); MEAN CORPUSCULAR HGB CONC 33.9 G/DL (33.0-37.0); MEAN CORPUSCULAR VOLUME 88.9 FL (80.0-94.0); MEAN PLATELET VOLUME 8.2 FL (7.4-10.4); PLATELET COUNT 226 /CUMM (130-400); RBC DISTRIBUTION WIDTH 13.7 % (11.5-14.5); RED BLOOD CELL CT 5.07 /CUMM (4.70-6.10); WHITE BLOOD CELL COUNT 7.5 /CUMM (4.8-10.8)
[2017-06-20] MEDS ORDERED: ASPIRIN EC81 M1 PO (09:00)
[2017-06-20] MEDS ORDERED: CARVEDILOL12.5 M1 PO (10:14)
--- NOTE | 2017-06-20 10:19 | PN- Housestaff ---
Unruly TRAN,Geov[facility] 06/20/17 1019: Subjective Follow-up For: tia Tele-Events Since Last Visit: 30 beat of vtach Subjective: Saw pt at bedside this AM. He was entirely asymptomatic during episode of vtach. His deficits have largely resolved and he was sitting up in armchair at bedside. He had no complaints. Review of Systems Constitutional: Denies: chills, fever, weakness. EENTM: Reports: no symptoms. Cardiovascular: Denies: chest pain, palpitations. Respiratory: Denies: cough, short of breath. Gastrointestinal: Denies: abdominal pain, constipation, diarrhea. Genitourinary: Reports: no symptoms. Objective Last 24 Hrs of Vital Signs/I&O Vital Signs Date Time Temp Pulse Resp B/P B/P Pulse O2 O2 Flow FiO2 Mean Ox Delivery Rate 06/20 0900 48 06/20 0745 130/78 06/20 0600 98.6 46 16 138/78 94 06/19 2322 97.6 52 18 142/80 96 06/19 2148 61 150/72 06/19 1459 150/72 06/19 1426 61 16 97 Room Air Intake & Output 06/20 1600 06/20 0800 06/20 0000 Intake Total Output Total 1050 650 Balance -1050 -650 Output, Urine 1050 650 Patient 104.638 kg Weight Physical Exam General Appearance: Alert, Oriented X3, Cooperative, No Acute Distress Skin: No Rashes, No Significant Lesion HEENT: Atraumatic, PERRLA, EOMI Neck: Supple Cardiovascular: Regular Rate, Normal S1, Normal S2, No Murmurs Lungs: Clear to Auscultation Abdomen: Soft, No Tenderness Neurological: Normal Speech, Normal Tone, Sensation Intact, Cranial Nerves 3-12 NL Extremities: No Clubbing, No Cyanosis, No Edema Current Medications: Current Medications Sig/Barrett Start time Last Medication Dose Route Stop Time Status Admin Amlodipine Besylate 2.5 MG DAILY 06/20 09 AC 06/20 PO 0745 Aspirin 81 MG DAILY 06/18 09 AC 06/20 PO 0744 Atorvastatin Calcium 80 MG 1700 06/18 1700 AC 06/19 PO 1544 Carvedilol 25 MG BID 06/19 945 AC 06/19 PO 2148 Chlorthalidone 25 MG DAILY 06/19 09 AC 06/20 PO 0745 Cyanocobalamin 250 MCG DAILY 06/19 1143 AC 06/20 PO 0744 Enoxaparin Sodium 40 MG DAILY 06/18 0900 AC 06/20 SC 0745 Potassium Chloride 20 MEQ Q2 06/19 1200 DC 06/19 PO 06/19 1401 1310 Last 24 Hrs of Lab/Ignacio Results Last 24 Hrs of Labs/Mics: Laboratory Tests 06/20/17 0625: Anion Gap 10, Estimated GFR > 60, BUN/Creatinine Ratio 18.9, CBC w Diff NO MAN DIFF REQ, RBC 5.07, MCV 88.9, MCH 30.2, MCHC 33.9, RDW 13.7, MPV 8.2, Gran % 59.2, Lymphocytes % 19.6 L, Monocytes % 19.5 H, Eosinophils % 1.5, Basophils % 0.2, Absolute Granulocytes 4.4, Absolute Lymphocytes 1.5, Absolute Monocytes 1.5 H, Absolute Eosinophils 0.1, Absolute Basophils 0 Assessment/Plan Assessment: This is a 76 yo male with PMH Htn who comes in for CC L. sided weakness and dysrthria with max NIHSS 5, was out of window for TPA and no obvious lesion noted on CT scan. He has regained most of his strength and speech but is left with slight LE weakness. Notably, on day of discharge he had 30 beats of vtach and was entirely asymptomatic. Cardiology, Dr. Jovel, was paged and his recommendations obtained. He will be d/c home with close follow up with PCP. PLAN: CVA: Echo done on 03/22/2017. Results are pending. Carotid US unremarkable * ASA * Statin * Pt to go with home physical therapy * Appreciate neuro recs HTN: Bp has been between 188/87 and 132/80 since admission. * Con't chlorthalidone * STOP Coreg 25mg BID as he was bradycardic down to 40s-50s overnight. Will start 1.5mg BID coreg instead. * Con't Amlodipine Hypokalemia: resolved Problem List: 1. CVA (cerebral vascular accident) Pain Ratin Pain Location: none Pain Goal: Remain pain free Pain Plan: none Tomorrow's Labs & Rationales: Kunal Miles 06/20/17 1159: Attending MD Review Statement Attending Statement Attending MD Statement: examined this patient, discuss w/resident/PA/CAN WASHER, agreed w/resident/PA/CAN WASHER, discussed with family, reviewed EMR data (avail), discussed with nursing, discussed with case mgmt, reviewed images, amended to note Attending Assessment/Plan: 76M PMH HTN admitted after complaints of sudden onset of unsteady gait, left leg weakness with apraxia, left hand weakness, left facial droop, and slurred speech. He was out of tPA window, and no thrombus noted on CTA head. Patient with clinical improvement in focal deficits. 1. Acute CVA with improvement. 2. Hypertension 3. Bradycardia 4. NSVT. - decrease coreg in view of bradycardia. cont antihypertensives. - Echocardiogram, carotid doppler no significant stenosis. - ASA and statin, Continue home medication - DVT PPx - PT/OT recommend home PT. - Anticipated discharge today pending ECHO.
--- NOTE | 2017-06-20 11:10 | Event Note ---
Event Note Event Note: S: at 9:38 AM the team while rounding was made aware that the patient had a 31 beat run of V. tach. Patient had no symptoms at the time and was resting comfortably in bed. All other vitals normal. B: Patient is a 76-year-old male with a past medical history of hypertension that came in with left-sided weakness, TIA. Patient came in on Tuesday and today , Tuesday, his motor skills are better save for minor motor skills deficits. He is to be discharged today with home physical therapy. On telemetry monitoring overnight, he was in sinus bradycardia rate 49-53, no events. A: Due to the patient's low heart rate we wanted to decrease his 25 mg per day carvedilol to 12.5 mg. Due to his run of V. tach, we contacted on-call lithographic photographer apprentice Dr. Jovel for recommendation. At that time the patient's blood pressure was good systolic 130s. Blood pressure medicines include amlodipine, chlorthalidone. Dr. Jovel stated that we should keep his antihypertensives as is and that he was okay with decreasing the Coreg. Patient will follow-up with a lithographic photographer apprentice (patient is to see his 's lithographic photographer apprentice but we will refer him to Becka in case).
[2017-06-20 14:01] VITALS: BP 140/80
--- NOTE | 2017-06-20 19:59 | ECHOCARDIOGRAM REPORT ---
NATHAN NORTH Age: 76 : 1940 Gender: M Exam Date: 06/20/2017 11:12 Exam Location: [address] Ht (in): 71 Wt (lb): 220 BSA: 2.26 BP: 138 / 70 Ordering Physician: Madeline Tolliver MD Referring Physician: Madeline Tolliver MD Technologist: Mickey Borrego [facility] Room Number: 179-2 Indications: CVA Rhythm: Sinus Technical Quality: Technically limited study FINDINGS Left Ventricle Left ventricle not well visualized, grossly normal eyes. Distal septal, posterior, lateral, and apical hypokinesis with borderline normal systolic function. Borderline normal left ventricular ejection fraction estimated at 50-55%. Suspect delayed relaxation left ventricular inflow pattern. Waterman not well visualized, cannot exclude apical thrombus. Right Ventricle Normal right ventricular size and function. Right Atrium Normal right atrial size. Left Atrium Mild left atrial dilatation. Mitral Valve Mild mitral annular calcification. Grossly normal mitral valve. No mitral regurgitation. Aortic Valve Aortic valve not well visualized. No aortic valve stenosis or regurgitation. Tricuspid Valve Grossly normal aortic valve. Trace tricuspid regurgitation. Unable to estimate the right ventricular systolic pressure. Pulmonic Valve Pneumonic valve not well visualized. No pulmonic regurgitation. Pericardium No pericardial effusion. Great Vessels Normal size aortic root. CONCLUSIONS Technically limited study. Left ventricle not well visualized, grossly normal eyes. Distal septal, posterior, lateral, and apical hypokinesis with borderline normal systolic function. Borderline normal left ventricular ejection fraction estimated at 50-55%. Suspect delayed relaxation left ventricular inflow pattern. Waterman not well visualized, cannot exclude apical thrombus. Normal right ventricular size and function. Normal right atrial size. Mild left atrial dilatation. Trace tricuspid regurgitation. Unable to estimate the right ventricular systolic pressure. Benjamín Jovel M.D. (Electronically Signed) Final Date: 20 June 2017 19:58 MEASUREMENTS (Male / Female) Normal Values 2D ECHO LV Ejection Fraction MOD BP 55.6 % >= 55 % LV Cardiac Index MOD BP 2091.5 cm/minm LV Diastolic Length 4C 7.2 cm 6.9 - 10.3 cm LV Diastolic Area 4C 23.9 cm LV Diastolic Volume MOD 4C 69.0 cm LV Ejection Fraction MOD 4C 40.6 % LV Stroke Volume MOD 4C 28.0 cm LV Cardiac Index MOD 4C 1064.8 cm/minm LV Systolic Length 4C 7.0 cm LV Systolic Area 4C 18.0 cm LV Systolic Volume MOD 4C 41.0 cm LV Ejection Fraction MOD 2C 65.6 % LV Cardiac Index MOD 2C 3270.4 cm/minm LV Diastolic Volume 4C AL 67.4 cm 85 - 139 / 69 - 109 cm LV Systolic Volume 4C AL 39.6 cm LV Ejection Fraction 4C AL 41.2 % LV Stroke Volume 4C AL 27.8 cm LV Cardiac Index 4C AL 1057.5 cm/minm LV Ejection Fraction 2C AL 67.1 % LV Cardiac Index 2C AL 3403.0 cm/minm DOPPLER AV Peak Velocity 178.0 cm/s AV Peak Gradient 12.7 mmHg LVOT Peak Velocity 133.0 cm/s LVOT Peak Gradient 7.1 mmHg Mitral E Point Velocity 70.1 cm/s Mitral A Point Velocity 64.2 cm/s Mitral E to A Ratio 1.1 MV Deceleration Time 310.0 ms LV E' Lateral Velocity 9.9 cm/s Mitral E to LV E' Lateral Ratio 7.1 LV E' Septal Velocity 4.7 cm/s Mitral E to LV E' Septal Ratio 15.0
== END 2017-06-20 20:40 | DRG 65 ==
LOC: DELPENDDIS → ERH 22:29 → 1NO 06-18 01:27 → ERHI 06-18 01:27 → ENRESERV 06-18 15:34 → ENTRNSPT 06-18 16:17 → EDTRNSPT 06-18 16:50 → EDTRNSPTSTS 06-18 16:50 → 1NO 06-18 16:58 → CMPTRNSPT 06-18 17:10 → ENPENDDIS 06-20 10:18 → 1NO 06-20 11:31 → ENPENDDIS 06-20 13:55 → ENTRNSPT 06-20 20:14 → EDTRNSPT 06-20 20:31 → EDTRNSPTSTS 06-20 20:31 → 1NO 06-20 20:40 → CMPTRNSPT 06-20 20:46
PROVIDERS: Emergency Medicine; Internal Medicine; Student in an Organized Health Care Education/Training Program
DX: I63.9 Cerebral infarction, unspecified (principal); G81.94 Hemiplegia, unspecified affecting left nondominant side; I47.2 Ventricular tachycardia; I69.992 Facial weakness following unspecified cerebrovascular disease; R47.1 Dysarthria and anarthria; I10 Essential (primary) hypertension; E78.5 Hyperlipidemia, unspecified; Z87.891 Personal history of nicotine dependence; Z88.0 Allergy status to penicillin; E87.6 Hypokalemia
CPT/HCPCS: 1NSP; 36415; 36592; 71045; 82436; 93005; 93010; 93306; 97112-GO; 97116-GO; 97162-GP; 97530-GO; 99291; J1650; J3490